=== PATIENT | female | born 1985 | race Two or more races ===

== ENCOUNTER → 2022-02-22 | Day surgery (SDC) | payer OTHER ==
[~2022-02-22] MED LIST: NASAL MIST126 ML; PEPCID PO
== END | disposition home or self-care (01) ==
LOC: ADM 02-17 12:00 → CIR.AMB 09:58
PROVIDERS: ATTEND Obstetrics & Gynecology
DX: N85.02 Endometrial intraepithelial neoplasia [EIN] (principal); Z20.822 Contact with and (suspected) exposure to COVID-19

== ENCOUNTER 2022-06-07 10:19 | Day surgery (SDC) | payer OTHER ==
[~2022-06-07 10:19] MED LIST changes: +PROTONIX20 MG PO
== END 2022-06-07 23:25 | disposition home or self-care (01) ==
LOC: CIR.AMB 10:19
PROVIDERS: ATTEND Obstetrics & Gynecology
DX: N87.1 Moderate cervical dysplasia (principal); R87.810 Cervical high risk human papillomavirus (HPV) DNA test positive; N72 Inflammatory disease of cervix uteri; Z20.822 Contact with and (suspected) exposure to COVID-19

== ENCOUNTER 2023-12-12 11:38 | Day surgery (SDC) | payer OTHER ==
[~2023-12-12 11:38] MED LIST changes: +NEXIUM; +OMEPRAZOLE
[2023-12-12] MEDS ORDERED: POVIDONE-IODINE 118 ML BOTT TOP ONE (16:48)
[2023-12-12] MEDS ORDERED: KETOROLAC TROMETHAMINE 60 MG VIAL IM STA (18:23)
[2023-12-12] MEDS ORDERED: RINGERS SOLUTION,LACTATED 1,000 ML IV SCH (18:30)
[2023-12-12] MEDS ORDERED: KETOROLAC TROMETHAMINE 60 MG VIAL IM ONE (22:36)
== END 2023-12-12 22:55 | disposition home or self-care (01) ==
LOC: CIR.AMB 11:38
PROVIDERS: ATTEND Obstetrics & Gynecology
DX: D06.9 Carcinoma in situ of cervix, unspecified (principal); N72 Inflammatory disease of cervix uteri; K29.70 Gastritis, unspecified, without bleeding; Z91.011 Allergy to milk products